=== PATIENT | female | born 1955 | race Caucasian/White ===

== ENCOUNTER → 2023-10-29 08:26 | Outpatient (REF) | payer MEDICARE, OTHER, SELFPAY | LOC: SDSPAT 08:26 | PROVIDERS: ATTENDING PHYSICIAN Urology; FAMILY PHYSICIAN Physician Assistant Medical | DX: N20.0 Calculus of kidney (principal) | CPT/HCPCS: 36415; 93005 ==

== ENCOUNTER 2023-11-07 06:22 | Day surgery (SDC) | payer MEDICARE, OTHER, SELFPAY ==
--- NOTE | 2023-10-29 12:32 | PTCARENOTE ---
Patients 2/7 EKG abnormal- reviewed by Dr. Medrano- no additional interventions requested
[2023-10-29 14:09] VITALS: BMI 23.4
[2023-11-07] VITALS (9 sets, daily range): BP systolic 115–147; BP diastolic 58–77; BMI 23.4
[2023-11-07] MEDS: NORMOSOL-R 1000 IV (11:35)
[2023-11-07] MEDS: Pyridium 200 MG PO (13:33)
[2023-11-13 11:23] LABS: Stone Analysis Mass 75 mg
== END 2023-11-07 14:57 | disposition home or self-care (01) ==
LOC: SDS 06:22
PROVIDERS: ATTENDING PHYSICIAN Urology
DX: N13.2 Hydronephrosis with renal and ureteral calculous obstruction (principal)
CPT/HCPCS: 52356; 74420; 76000; 82365; C1758; C1769; C1894; C2617

== ENCOUNTER → 2024-05-03 08:26 | Outpatient (REF) | payer MEDICARE, OTHER, SELFPAY | LOC: RAD 08:26 | PROVIDERS: ATTENDING PHYSICIAN Urology; FAMILY PHYSICIAN Physician Assistant Medical | DX: N20.0 Calculus of kidney (principal) | CPT/HCPCS: 76775 ==

== ENCOUNTER → 2024-10-18 08:41 | Outpatient (REF) | payer MEDICARE, OTHER, SELFPAY | LOC: WDC 08:41 | PROVIDERS: ATTENDING PHYSICIAN Physician Assistant Medical | DX: Z12.31 Encounter for screening mammogram for malignant neoplasm of breast (principal) | CPT/HCPCS: 77063; 77067 ==

== ENCOUNTER → 2025-05-04 08:55 | Outpatient (REF) | payer MEDICARE, OTHER, SELFPAY | LOC: RAD 08:55 | PROVIDERS: ATTENDING PHYSICIAN Urology; FAMILY PHYSICIAN Physician Assistant Medical | DX: N20.0 Calculus of kidney (principal) | CPT/HCPCS: 76775 ==

== ENCOUNTER 2025-08-17 13:26 | Outpatient (RCR) | payer MEDICARE, OTHER, SELFPAY | END 2025-08-17 23:59 | disposition home or self-care (01) | LOC: RPT 13:26 | PROVIDERS: ATTENDING PHYSICIAN Specialist; FAMILY PHYSICIAN Physician Assistant Medical | DX: M17.0 Bilateral primary osteoarthritis of knee (principal); Z73.6 Limitation of activities due to disability; M62.81 Muscle weakness (generalized) | CPT/HCPCS: 97110; 97112; 97162; 97530 ==

== ENCOUNTER → 2025-08-30 11:06 | Outpatient (REF) | payer MEDICARE, OTHER, SELFPAY | LOC: RAD 11:06 | PROVIDERS: ATTENDING PHYSICIAN Nurse Practitioner; FAMILY PHYSICIAN Physician Assistant Medical | DX: R11.0 Nausea (principal); K59.09 Other constipation | CPT/HCPCS: 74019 ==

== ENCOUNTER 2025-09-07 08:23 | Outpatient (RCR) | payer MEDICARE, OTHER, SELFPAY | END 2025-09-13 23:59 | disposition home or self-care (01) | LOC: RPT 08:23 | PROVIDERS: ATTENDING PHYSICIAN Specialist; FAMILY PHYSICIAN Physician Assistant Medical | DX: M17.0 Bilateral primary osteoarthritis of knee (principal); Z73.6 Limitation of activities due to disability; M62.81 Muscle weakness (generalized) | CPT/HCPCS: 97110; 97112; 97530 ==